=== PATIENT | female | born 1945 | race Caucasian/White ===

== ENCOUNTER → 2019-09-11 | Outpatient (CLI) | payer MEDICARE ==
[~2019-09-11] MED LIST: ASPI81CH PO; FLUO.05TO; LEVSOD100 PO; SIMV40 PO
== END | disposition home or self-care (01) ==
LOC: PLD 11:39 → LAB SHORT 11:39
DX: L57.0 Actinic keratosis (principal)
CPT/HCPCS: 88305

== ENCOUNTER → 2020-05-16 | Outpatient (CLI) | payer MEDICARE | END | disposition home or self-care (01) | LOC: PLD 11:50 → LAB SHORT 11:50 | DX: D04.71 Carcinoma in situ of skin of right lower limb, including hip (principal) | CPT/HCPCS: 88305 ==

== ENCOUNTER 2022-07-23 13:39 | Day surgery (SDC) | payer MEDICARE ==
[~2022-07-23] VITALS: Ht 160 cm; Wt 69.0 kg
[~2022-07-23 13:39] MED LIST changes: +HYDCHL25 PO; +LEVOTHYROXINE PO; +OXYC5 PO; +ZOCOR20 MG PO
--- NOTE | 2022-07-23 15:10 | NUR ---
Ambulatory in Day Surgery WITH WHEELED WALKER. Patient states colon prep results clear. History, Chart, Medications and Allergies reviewed before start of procedure.Pre-Op teaching done. Pt verbalizes understanding. Patient States Post-Procedure ride home has been arranged.
--- NOTE | 2022-07-23 15:35 | NUR ---
07/23/22 1535 [facility] HISTORY, CHART, MEDICATIONS AND ALLERGIES REVIEWED BEFORE START OF PROCEDURE. PATIENT CONFIRMS NPO STATUS AND AGREES WITH SCHEDULED PROCEDURE. 3-LEAD EKG REVIEWED WITH PHYSICIAN PRIOR TO START OF PROCEDURE. MONITOR INTACT WITH CONTINUOUS PULSE OXIMETRY,CAPNOGRAPHY, 3-LEAD EKG, INTERMITTENT BP. SUPPLEMENTAL O2 TO BE TITRATED THROUGHOUT PROCEDURE TO MAINTAIN O2 SATURATION ABOVE 90%. PATIENT DETERMINED TO BE ASA APPROPRIATE FOR PROPOFOL SEDATION PRIOR TO START OF PROCEDURE BY DR. BOYCE
--- NOTE | 2022-07-23 16:15 | NUR ---
Discharge instructions reviewed with patient. Patient verbalizes understanding. Copy given to patient to take home. Discharged via wheelchair to private car for ride home.
== END 2022-07-23 16:20 | disposition home or self-care (01) ==
LOC: ORSCMMR 13:39 → ORD 14:45 → ORSCMMR 16:20
PROVIDERS: Surgery
PROC: 0DJD8ZZ Inspection of Lower Intestinal Tract, Via Natural or Artificial Opening Endoscopic (ICD-10-PCS; principal; 2022-07-23 14:45)
DX: Z12.11 Encounter for screening for malignant neoplasm of colon (principal); Z86.010 Personal history of colon polyps; I10 Essential (primary) hypertension; E78.5 Hyperlipidemia, unspecified; E03.9 Hypothyroidism, unspecified; Z79.899 Other long term (current) drug therapy
CPT/HCPCS: J2704; J7120

== ENCOUNTER 2022-09-22 08:18 | Day surgery (SDC) | payer MEDICARE ==
[~2022-09-22] VITALS: Ht 160 cm; Wt 72.1 kg
[~2022-09-22 08:18] MED LIST changes: +CALCIUM 500 MG1 EAC2 PO; +FISH OIL 1,2001 EAC7 PO; +MULVITA PO; +NERVE PO; +VITAMIN D310 MC4 PO
--- NOTE | 2022-09-22 15:09 | NUR ---
Pt. is awake in bed and welcomes my visit. Pt.is pleasant and rapport is quickly established as this pt. 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 Pt. displays evidence of being engaged and aware of her surgery and upcaoming PT. Pt. verbalizes expectations of discharge. Normalize the Pt. expereince. Prayed with Pt. Pt. verbalized gratitude for the spiritual care visit.
--- NOTE | 2022-09-22 17:10 | NUR ---
SHIFT SUMMARY PT HAS DONE WELL POST OP. QUIET & THANKFUL. WAS ABLE TO GET UP & OOB ONCE SPINAL WORE OFF. EATING, DRINKING, & VOIDING. PAIN WELL CONTROLLED w/ 1 OXY.
--- NOTE | 2022-09-23 05:15 | NUR ---
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 PT HAS DONE VERY WELL TONIGHT. AMBULATING WITH MINIMAL ASSIST. HAS HAD VERY LITTLE PAIN AT ALL AND WHAT PAIN THE PT DOES HAVE HAS BEEN CONTROLLED WITH SCHEDULED TORADOL/TYLENOL. DENIES N/T TO EXTREMETIES. KNEE DRESSING C/D/I. VSS, WILL CONTINUE TO MONITOR.
[2022-09-23 06:26] LABS: BASOPHILS ABSOLUTE AUTO 0.02 K/mm3 (0.00-0.23); BASOPHILS PERCENT AUTO 0 % (0-2); EOSINOPHILS PERCENT AUTO 0 % (0-6); Hemoglobin 10.9 g/dL (11.5-16.0); IMMATURE GRAN ABSOLUTE AUTO 0.06 K/mm3 (0.00-0.10); IMMATURE GRAN PERCENT AUTO 1 % (0-1); LYMPHOCYTES ABSOLUTE AUTO 1.26 K/mm3 (0.84-5.20); LYMPHOCYTES PERCENT AUTO 10 % (21-46); MONOCYTES ABSOLUTE AUTO 0.86 K/mm3 (0.16-1.47); MONOCYTES PERCENT AUTO 7 % (4-13); Mean Corpuscular HGB 26.9 pg (26.0-34.0); Mean Corpuscular HGB Conc 32.1 g/dL (31.5-36.5); Mean Corpuscular Volume 84 fL (80-100); Mean Platelet Volume 9.4 fL (9.1-12.4); NEUTROPHILS ABSOLUTE AUTO 10.63 K/mm3 (1.96-9.15); NEUTROPHILS PERCENT AUTO 83 % (41-73); Platelet Count 298 K/mm3 (150-400); RDW Coefficient Variation 14.4 % (11.7-14.2); RDW Standard Deviation 44.7 fL (35.1-46.3); Red Blood Cell Count 4.05 M/mm3 (3.80-5.20); White Blood Cell Count 12.83 K/mm3 (4.00-11.30)
[2022-09-23 06:56] LABS: Bun/Creatinine Ratio 22.8 (12.0-20.0); Calcium, Blood 8.8 mg/dL (8.5-10.1); Creatinine, Blood 0.75 mg/dL (0.40-1.00); Potassium, Blood 3.4 mmol/L (3.5-5.5)
[2022-09-23] MEDS ORDERED: Percocet 5-3251 EACH PO (09:44)
--- NOTE | 2022-09-23 10:26 | NUR ---
09/23/22 1026 Etelvina Warren VERIFICATIONS: EDIT CHART.
--- NOTE | 2022-09-23 10:35 | NUR ---
DISCHARGE PT HAS CLEARED THERAPY. PAIN WELL CONTROLLED. EATING, DRINKING, & VOIDING WELL. SCRIPT GIVEN TO GRANDDAUGHTER YESTERDAY. OBINNA & POLAR PACK SENT w/ PT. ESCORTED OUT VIA W/C.
== END 2022-09-23 10:35 | disposition home or self-care (01) ==
LOC: ORSCMMR 08:18 → SURS 13:45 → ORSCMMR 09-23 10:35
PROVIDERS: Orthopaedic Surgery
PROC: 0SRD0JA Replacement of Left Knee Joint with Synthetic Substitute, Uncemented, Open Approach (ICD-10-PCS; principal; 2022-09-22 10:00)
PROC: 8E0Y0CZ Robotic Assisted Procedure of Lower Extremity, Open Approach (ICD-10-PCS; principal; 2022-09-22 10:00)
DX: M17.0 Bilateral primary osteoarthritis of knee (principal); I10 Essential (primary) hypertension; E78.5 Hyperlipidemia, unspecified; E03.9 Hypothyroidism, unspecified; Z79.899 Other long term (current) drug therapy
CPT/HCPCS: 27447; 20985; S2900; 36415; 73560-LT; 80048; 85025; 97110; 97116; 97161; 97530; A9270; C1776; J0171; J0690; J0735; J1100; J1885; J2370; J2405; J2704; J2795; J3010; J7120

== ENCOUNTER 2022-12-29 08:32 | Day surgery (SDC) | payer MEDICARE ==
[~2022-12-29] VITALS: Ht 160 cm; Wt 71.1 kg
[~2022-12-29 08:32] MED LIST changes: +Percocet 5-3251 EACH PO
--- NOTE | 2022-12-29 18:36 | NUR ---
SHIFT SUMMARY PT HAS STRUGGLED w/ NAUSEA POST OP. WAS ABLE TO WORK w/ THERAPY. SIPPING ON FLUIDS & IVF INFUSE BEFORE & AFTER WORKING w/ THERAPY. VOIDING.
[2022-12-30 04:16] LABS: BASOPHILS ABSOLUTE AUTO 0.02 K/mm3 (0.00-0.23); BASOPHILS PERCENT AUTO 0 % (0-2); EOSINOPHILS PERCENT AUTO 0 % (0-6); Hematocrit 34.4 % (33.0-51.0); Hemoglobin 11.1 g/dL (11.5-16.0); IMMATURE GRAN ABSOLUTE AUTO 0.08 K/mm3 (0.00-0.10); IMMATURE GRAN PERCENT AUTO 1 % (0-1); LYMPHOCYTES ABSOLUTE AUTO 1.13 K/mm3 (0.84-5.20); LYMPHOCYTES PERCENT AUTO 9 % (21-46); MONOCYTES ABSOLUTE AUTO 0.39 K/mm3 (0.16-1.47); MONOCYTES PERCENT AUTO 3 % (4-13); Mean Corpuscular HGB 27.6 pg (26.0-34.0); Mean Corpuscular HGB Conc 32.3 g/dL (31.5-36.5); Mean Corpuscular Volume 86 fL (80-100); Mean Platelet Volume 9.2 fL (9.1-12.4); NEUTROPHILS ABSOLUTE AUTO 10.72 K/mm3 (1.96-9.15); NEUTROPHILS PERCENT AUTO 87 % (41-73); Platelet Count 278 K/mm3 (150-400); RDW Coefficient Variation 14.1 % (11.7-14.2); RDW Standard Deviation 44.6 fL (35.1-46.3); Red Blood Cell Count 4.02 M/mm3 (3.80-5.20); White Blood Cell Count 12.34 K/mm3 (4.00-11.30)
[2022-12-30 04:39] LABS: Bun/Creatinine Ratio 31.4 (12.0-20.0); Calcium, Blood 8.8 mg/dL (8.5-10.1); Creatinine, Blood 0.89 mg/dL (0.40-1.00); Potassium, Blood 4.7 mmol/L (3.5-5.5)
--- NOTE | 2022-12-30 10:09 | NUR ---
Pt. is awake and finishing with PT. Spouse and Pt. welcome my visit. Pt. is pleasant and is known to this resort manager outside of the hospital. Esyablished rapport and facilitated a life review. Pt. displays evidence of a confidant kimberly and a supportive family. Prayed with Pt. Pt. and spouse verbalized graitude for the spiritual care visit.
[2022-12-30] MEDS ORDERED: Percocet 5-3251 EACH PO (10:17)
--- NOTE | 2022-12-30 10:52 | NUR ---
DISCHARGE SUMMARY PT POD #1 FOR R TOTAL KNEE. AQUACEL AND FLORENCIO WRAP DRESSINGS IN PLACE AND CDI. PT'S PAIN TREATED PER EMR WITH GOOD EFFECT. WORKED WELL WITH PHYSICAL THERAPY AND CLEARED TO GO HOME. PT DECLINED TO TAKE POLAR PACK HOME SINCE SHE HAS ONE LEFT OVER FROM HER PREVIOUS KNEE SURGERY. PT DRIVEN HOME BY .
== END 2022-12-30 10:45 | disposition home or self-care (01) ==
LOC: ORSCMMR 08:32 → ORD 09:15 → ORSCMMR 09:15 → ORD 10:00 → SURS 14:25 → ORSCMMR 12-30 10:45
PROVIDERS: Orthopaedic Surgery
PROC: 8E0Y0CZ Robotic Assisted Procedure of Lower Extremity, Open Approach (ICD-10-PCS; principal; 2022-12-29 10:00)
PROC: 0SRC0JA Replacement of Right Knee Joint with Synthetic Substitute, Uncemented, Open Approach (ICD-10-PCS; principal; 2022-12-29 10:00)
DX: M17.11 Unilateral primary osteoarthritis, right knee (principal); I10 Essential (primary) hypertension; E78.5 Hyperlipidemia, unspecified; E03.9 Hypothyroidism, unspecified; Z79.899 Other long term (current) drug therapy; Z79.82 Long term (current) use of aspirin
CPT/HCPCS: 27447; 20985; S2900; 36415; 73560-RT; 80048; 85025; 97110; 97116; 97162; A9270; C1776; J0171; J0690; J0735; J1100; J1170; J1885; J2250; J2370; J2405; J2550; J2704; J2795; J3010; J7120

== ENCOUNTER 2023-02-09 05:54 | Day surgery (SDC) | payer MEDICARE ==
[~2023-02-09] VITALS: Ht 160 cm; Wt 72.0 kg
--- NOTE | 2023-02-09 06:54 | NUR ---
PT IN TO SDS BY KRISTI. PT A/O. History, Chart, Medications and Allergies reviewed before start of procedure.Lungs clear T/O to Auscultation. Patient confirms NPO status and agrees with scheduled surgery. Pre-Op teaching done. Pt verbalizes understanding. Patient States Post-Procedure ride home has been arranged.
--- NOTE | 2023-02-09 09:02 | NUR ---
Patient up to Ambulate independently. Gait steady W/ HELP FROM CANE. INCISION WELL APPROXIMATED, NO DRAINAGE. D/C INSTRUCTIONS GIVEN. D/C TO HOME W/ [employer]ANT ATTENDANT
== END 2023-02-09 22:46 | disposition home or self-care (01) ==
LOC: ORSCMMR 05:54 → ORD 07:30 → ORSCMMR 07:30
PROVIDERS: Orthopaedic Surgery
PROC: 0SSCXZZ Reposition Right Knee Joint, External Approach (ICD-10-PCS; principal; 2023-02-09 07:30)
DX: M24.661 Ankylosis, right knee (principal); Z96.651 Presence of right artificial knee joint; I10 Essential (primary) hypertension; E03.9 Hypothyroidism, unspecified; E78.5 Hyperlipidemia, unspecified; Z79.82 Long term (current) use of aspirin; Z79.899 Other long term (current) drug therapy
CPT/HCPCS: 73560-RT; A9270; J1100; J2250; J2405; J2704; J3010; J7120